=== PATIENT | male | born 1975 | race Caucasian/White ===

== ENCOUNTER 2016-12-25 14:45 | Emergency (ER) | payer OTHER | END 2016-12-25 18:46 | disposition home or self-care (01) | LOC: ER 14:45 | DX: R06.00 Dyspnea, unspecified (principal); Z79.899 Other long term (current) drug therapy; F17.210 Nicotine dependence, cigarettes, uncomplicated | CPT/HCPCS: 36415; 71020; 80053; 82553; 83880; 84484; 85025; 85379; 85610; 85730; 93005 ==